=== PATIENT | female | born 2000 | race Hispanic/Latino ===

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

== ENCOUNTER 2022-08-30 13:18 | Emergency (ER) | payer OTHER, SELFPAY ==
[2022-08-30 13:30] VITALS: BP 114/74; PULSE 88; RESP 16; TEMP 36.8; O2SAT 99
--- NOTE | 2022-08-30 13:51 | ED.ABDPAIN ---
HPI - Abdominal Pain General Chief Complaint: Abdominal Pain Stated Complaint: Swallowing Pain Time Seen by Provider: 08/30/22 13:20 Source: patient Mode of arrival: ambulatory Limitations: no limitations History of Present Illness HPI narrative: 22-year-old female presents to [facility] complains of epigastric pain and difficulty swallowing foods and fluids for the past 4 days. Patient reports that she took ibuprofen with no help. Patient reports that she ate eggs this morning but she had to chew up the food for a prolonged period of time before the food felt like it would go down. patient denies history of GERD or esophagitis. Patient denies nausea vomiting diarrhea, fever, body aches, chills, cough, congestion, sore throat or ear pain. MD elicited complaint: abdominal pain Pertinent past history: none Onset (ago): day(s) (3) Radiation: epigastric Exacerbating factors: eating Associated symptoms: denies other symptoms Treatments prior to arrival: NSAIDs Related Data Allergies Allergy/AdvReac Type Severity Reaction Status Date / Time Penicillins Allergy Intermediate Rash Verified 08/30/22 13:51 Review of Systems Constitutional: Constitutional: Denies chills, Denies fatigue, Denies fever(s) and Denies weakness ENT: Denies vertigo and Denies dizziness Cardiovascular: Cardiovascular: Denies chest pain Respiratory: Respiratory: Denies cough, Denies dyspnea and Denies wheezing Gastrointestinal: Gastrointestinal: Reports abdominal pain, Denies bloating, Denies constipation, Denies heartburn, Denies diarrhea, Denies nausea and Denies vomiting Integumentary/Breasts: Skin/Breast: Denies rash Neurologic: Denies dizziness and Denies syncope PMFSH Comments At time of signature, I agree with nursing past medical, surgical, social and family history. There is no relevant family history pertinent to the presenting complaint. Exam Const: General: healthy appearing and no acute distress Nutritional Appearance: well nourished and thin Orientation/consciousness: patient oriented x3 Limitations: no limitations Neck: Neck: normal visual inspection Resp: Effort & Inspection: normal respiratory effort and not labored Auscultation: clear to auscultation bilaterally, no crackles, no rales, no rhonchi and no wheezes Cardio: Rate: regular rate Rhythm: regular rhythm Heart sounds: no murmurs GI: Inspection: non-distended GI Palp: Yes Soft to palpation and Yes Tenderness to palpation present (GI) ( mild tenderness noted to epigastric region upon palpation) Auscultation: normal bowel sounds Skin: General skin exam: normal color Rashes: no rashes Neuro: General: patient oriented x3 Speech: normal speech Psych: Affect: normal affect Attitude: cooperative Course Course Level of Care: Express [facility] Visit Vital Signs Vital signs: Vital Signs Temperature 36.8 C 08/30/22 13:30 Pulse Rate 88 08/30/22 13:30 Respiratory Rate 16 08/30/22 13:30 Blood Pressure 114/74 08/30/22 13:30 Pulse Oximetry 99 08/30/22 13:30 Oxygen Delivery Room Air 08/30/22 13:30 Temperature 36.8 C 08/30/22 13:30 Pulse Rate 88 08/30/22 13:30 Respiratory Rate 16 08/30/22 13:30 Blood Pressure 114/74 08/30/22 13:30 Pulse Oximetry 99 08/30/22 13:30 Oxygen Delivery Room Air 08/30/22 13:30 Transfer Transfered to: [place] Transportation: Other (private vehicle ) Transfer rationale: abdominal pain Accepting physician: Sandee PACHECO Transfer comments: transfer forms completed and signed MDM - Abdominal Pain MDM Narrative Medical decision making narrative: due to symptoms, patient will be referred to [place] emergency room for labs, imaging and higher level of care. Called [place] ER and report was given to Sandee PACHECO. transfer forms completed and signed. Differential Diagnosis Differential diagnosis: Likely acute appendicitis, gastroenteritis, pancreatitis and other ( esophagitis, GERD) Critical
== END 2022-08-30 13:52 | disposition short-term general hospital (02) ==
PROVIDERS: Emergency Provider Nurse Practitioner Family; PCP Pediatrics
DX: R10.13 Epigastric pain (principal)
CPT/HCPCS: 99212; G0463